=== PATIENT | female | born 1950 | race African-American/Black ===

== ENCOUNTER 2018-04-18 08:27 | Inpatient (IN) ==
[2018-04-18] MEDS ORDERED: ACETAMINOPHEN 500 MG TABLET PO STA (09:19)
[2018-04-18 09:51] LABS: Basophils # 0.1 10*3/uL (0.0-0.2); Basophils % 0.5 % (0.0-0.8); Hematocrit 44.3 VOL% (35.7-47.0); Hemoglobin 14.2 GM/DL (12.0-16.0); Immature Granulocytes % 0.4 %; Immature Granulocytes Absolute 0.05 #; Lymphocytes # 1.4 10*3/uL (1.4-4.0); Lymphocytes % 11.1 % (21.3-54.2); Mean Corpuscular HGB Conc 32.1 GM/DL (32-36); Mean Corpuscular Hemoglobin 26 PG (27-34); Mean Corpuscular Volume 80.3 FL (87-102); Monocytes # 1.4 10*3/uL (0.11-0.8); Monocytes % 11.7 % (1.7-12.7); Neutrophils # 9.4 10*3/uL (1.4-7.4); Neutrophils % 76.3 % (38.7-73.9); Platelet Count 184 T/CUMM (130-400); Red Blood Count 5.52 MC/CUMM (3.8-5.5); Red Cell Distribution Width 14.6 % (9.3-17.3); White Blood Count 12.3 T/CUMM (4-12)
[2018-04-18 10:09] LABS: Albumin 3.7 G/DL (3.4-5.0); Bilirubin,Total 0.7 MG/DL (0.2-1.0); Calcium 9.5 MG/DL (8.5-10.1); Osmolality,Calculated 270.5 MOS/KG (273-304); Potassium 3.8 MMOL/L (3.5-5.1); Total Protein 8.2 G/DL (6.4-8.3)
[2018-04-18] MEDS ORDERED: LEVOFLOXACIN INJ 500 MG in PREMIX 1 EACH IV STA (10:48)
[2018-04-18 10:50] LABS: Apearance,Urine CLEAR (Clear); Bilirubin,Urine Negative (Negative); Blood, Urine Negative (Negative); Glucose,Urine (UA) Negative (Negative); Hyaline Casts,Urine 3 /LPF (0-3); Ketones,Urine 5 mg/dL (Negative); Mucus,Urine Occasional /LPF (Occasional); Nitrite,Urine Negative (Negative); Protein,Urine 30 MG/DL; RBC,Urine 5 /HPF (0-4); Squamous Epithelial Cell,Urine Occasional /HPF (0-10); Urine Color Yellow (Yellow); Urine Specific Gravity 1.017 (1.001-1.035); Urine Urobilinogen < 2.0 EU/DL (0.2-1.0); WBC,Urine 1 /HPF (0-6)
[2018-04-18] MEDS ORDERED: GLUCAGON 1 MG VIAL IM PRN (13:33)
[2018-04-18] MEDS ORDERED: DEXTROSE 50% 25 GM/50 ML VIAL IV PRN (13:33)
[2018-04-18] MEDS ORDERED: ACETAMINOPHEN 325 MG TABLET PO PRN (13:33)
[2018-04-18] MEDS ORDERED: ONDANSETRON 4 MG/2 ML VIAL IV PRN (13:33)
[2018-04-18] MEDS: SODIUM CHLORIDE 0.9% 1,000 ML IV SCH (14:17)
[2018-04-18] MEDS: INSULIN LISPRO 100 UNIT/ML SUBCUT SCH ×3 (14:34→22:05)
[2018-04-18] MEDS ORDERED: KETOROLAC 15 MG/1 ML VIAL IV ONE (17:19)
[2018-04-18] MEDS: methylPREDNISolone SOD SUC 40 MG/1 ML VIAL IV SCH (17:49)
[2018-04-18] MEDS: cefTRIAXone 1,000 MG in SYRINGE 1 EACH IV SCH (17:51)
[2018-04-18] MEDS ORDERED: FUROSEMIDE 20 MG/2 ML VIAL IV ONE (19:12)
[2018-04-18] MEDS: DOCUSATE SODIUM 100 MG CAPSULE PO SCH (21:24)
[2018-04-18] MEDS: AZITHROMYCIN INJ 500 MG in SODIUM CHLORIDE 0.9% 250 ML IV SCH (21:24)
[2018-04-19] MEDS: ALBUTEROL/IPRATROPIUM 3 ML NEB RESP TX SCH ×4 (01:12→19:37)
[2018-04-19] MEDS: SODIUM CHLORIDE 0.9% 1,000 ML IV SCH ×2 (02:28→10:55)
[2018-04-19] MEDS: KETOROLAC 15 MG/1 ML VIAL IV SCH ×3 (02:28→17:28)
[2018-04-19 04:19] LABS: Basophils % 0.1 % (0.0-0.8); Hematocrit 39.4 VOL% (35.7-47.0); Hemoglobin 12.9 GM/DL (12.0-16.0); Immature Granulocytes % 0.6 %; Immature Granulocytes Absolute 0.08 #; Lymphocytes # 0.9 10*3/uL (1.4-4.0); Lymphocytes % 6.4 % (21.3-54.2); Mean Corpuscular HGB Conc 32.7 GM/DL (32-36); Mean Corpuscular Hemoglobin 26 PG (27-34); Mean Corpuscular Volume 79.1 FL (87-102); Mean Platelet Volume 12.3 FL (9.6-12.0); Monocytes # 1.4 10*3/uL (0.11-0.8); Monocytes % 10.5 % (1.7-12.7); Neutrophils # 11.3 10*3/uL (1.4-7.4); Neutrophils % 82.4 % (38.7-73.9); Platelet Count 175 T/CUMM (130-400); Red Blood Count 4.98 MC/CUMM (3.8-5.5); Red Cell Distribution Width 14.9 % (9.3-17.3); White Blood Count 13.7 T/CUMM (4-12)
[2018-04-19 04:46] LABS: Band Neutrophils 1 % (0-10); Hypochromasia 1+; Lymphocytes 6 % (20-55); Platelet Estimate Adequate; Segmented Neutrophils 80 % (50-85); Total Cells Counted 100
[2018-04-19 05:00] LABS: Albumin 2.8 G/DL (3.4-5.0); Bilirubin,Total 0.5 MG/DL (0.2-1.0); Calcium 8.6 MG/DL (8.5-10.1); Osmolality,Calculated 277.7 MOS/KG (273-304); Potassium 3.7 MMOL/L (3.5-5.1); Total Protein 6.8 G/DL (6.4-8.3)
[2018-04-19] MEDS: methylPREDNISolone SOD SUC 40 MG/1 ML VIAL IV SCH ×2 (05:45→19:07)
[2018-04-19] MEDS: BUDESONIDE 0.25 MG/2 ML NEB RESP TX SCH ×2 (07:27→19:37)
[2018-04-19] MEDS: INSULIN LISPRO 100 UNIT/ML SUBCUT SCH ×4 (08:05→21:39)
[2018-04-19] MEDS: DOCUSATE SODIUM 100 MG CAPSULE PO SCH ×2 (08:54→21:38)
[2018-04-19] MEDS: PANTOPRAZOLE 40 MG TABLET PO SCH (08:54)
[2018-04-19] MEDS: FUROSEMIDE 20 MG/2 ML VIAL IV SCH (08:54)
[2018-04-19] MEDS: cefTRIAXone 1,000 MG in SYRINGE 1 EACH IV SCH (20:50)
[2018-04-19] MEDS: AZITHROMYCIN INJ 500 MG in SODIUM CHLORIDE 0.9% 250 ML IV SCH (21:39)
[2018-04-20] MEDS: ALBUTEROL/IPRATROPIUM 3 ML NEB RESP TX SCH ×4 (00:51→19:25)
[2018-04-20] MEDS: SODIUM CHLORIDE 0.9% 1,000 ML IV SCH ×3 (01:58→22:17)
[2018-04-20] MEDS: KETOROLAC 15 MG/1 ML VIAL IV SCH ×3 (01:59→17:20)
[2018-04-20 05:40] LABS: Basophils % 0.2 % (0.0-0.8); Hematocrit 38.2 VOL% (35.7-47.0); Hemoglobin 12.1 GM/DL (12.0-16.0); Immature Granulocytes % 1.3 %; Immature Granulocytes Absolute 0.16 #; Lymphocytes # 1.3 10*3/uL (1.4-4.0); Lymphocytes % 10.6 % (21.3-54.2); Mean Corpuscular HGB Conc 31.7 GM/DL (32-36); Mean Corpuscular Hemoglobin 26 PG (27-34); Mean Corpuscular Volume 81.3 FL (87-102); Mean Platelet Volume 12.3 FL (9.6-12.0); Monocytes # 1.3 10*3/uL (0.11-0.8); Monocytes % 10.6 % (1.7-12.7); Neutrophils # 9.4 10*3/uL (1.4-7.4); Neutrophils % 77.3 % (38.7-73.9); Platelet Count 185 T/CUMM (130-400); Red Cell Distribution Width 14.8 % (9.3-17.3); White Blood Count 12.1 T/CUMM (4-12)
[2018-04-20 06:01] LABS: Calcium 8.1 MG/DL (8.5-10.1); Osmolality,Calculated 284.1 MOS/KG (273-304); Potassium 3.7 MMOL/L (3.5-5.1)
[2018-04-20] MEDS: BUDESONIDE 0.25 MG/2 ML NEB RESP TX SCH ×2 (07:04→19:25)
[2018-04-20] MEDS: methylPREDNISolone SOD SUC 40 MG/1 ML VIAL IV SCH ×3 (07:16→22:00)
[2018-04-20] MEDS: LEVOTHYROXINE 88 MCG TABLET PO SCH (07:17)
[2018-04-20] MEDS: LEVOTHYROXINE 100 MCG TABLET PO SCH (07:17)
[2018-04-20] MEDS: PANTOPRAZOLE 40 MG TABLET PO SCH (09:16)
[2018-04-20] MEDS: DOCUSATE SODIUM 100 MG CAPSULE PO SCH ×2 (09:16→22:01)
[2018-04-20] MEDS: INSULIN LISPRO 100 UNIT/ML SUBCUT SCH ×4 (10:06→22:14)
[2018-04-20] MEDS: FUROSEMIDE 20 MG/2 ML VIAL IV SCH (11:29)
[2018-04-20] MEDS: cefTRIAXone 1,000 MG in SYRINGE 1 EACH IV SCH (17:18)
[2018-04-20] MEDS: AZITHROMYCIN INJ 500 MG in SODIUM CHLORIDE 0.9% 250 ML IV SCH (22:15)
[2018-04-20] MEDS ORDERED: FEXOFENADINE 180 MG TABLET PO PRN (22:44)
[2018-04-20] MEDS ORDERED: CILOSTAZOL 50 MG TABLET PO SCH (23:00)
[2018-04-20] MEDS ORDERED: AMITRIPTYLINE 100 MG TABLET PO SCH (23:00)
[2018-04-21] MEDS ORDERED: AZITHROMYCIN INJ 250 MG in SODIUM CHLORIDE 0.9% 250 ML IV SCH
[2018-04-21] MEDS: AMITRIPTYLINE 100 MG TABLET PO SCH ×2 (00:02→22:18)
[2018-04-21] MEDS: ALBUTEROL/IPRATROPIUM 3 ML NEB RESP TX SCH ×4 (00:50→19:46)
[2018-04-21] MEDS: methylPREDNISolone SOD SUC 40 MG/1 ML VIAL IV SCH ×4 (01:27→18:03)
[2018-04-21] MEDS: KETOROLAC 15 MG/1 ML VIAL IV SCH ×3 (01:30→18:00)
[2018-04-21] MEDS: SODIUM CHLORIDE 0.9% 1,000 ML IV SCH ×2 (01:33→14:53)
[2018-04-21 06:34] LABS: Basophils % 0.3 % (0.0-0.8); Eosinophils % 0.1 % (0.00-10.9); Hemoglobin 13.2 GM/DL (12.0-16.0); Immature Granulocytes % 3.2 %; Immature Granulocytes Absolute 0.23 #; Lymphocytes # 1.2 10*3/uL (1.4-4.0); Lymphocytes % 16.3 % (21.3-54.2); Mean Corpuscular HGB Conc 31.4 GM/DL (32-36); Mean Corpuscular Hemoglobin 26 PG (27-34); Mean Corpuscular Volume 81.1 FL (87-102); Mean Platelet Volume 12.3 FL (9.6-12.0); Monocytes # 0.6 10*3/uL (0.11-0.8); Monocytes % 8.7 % (1.7-12.7); NRBC # 0.02 10*3/uL; Neutrophils # 5.2 10*3/uL (1.4-7.4); Neutrophils % 71.4 % (38.7-73.9); Platelet Count 228 T/CUMM (130-400); Red Blood Count 5.18 MC/CUMM (3.8-5.5); White Blood Count 7.3 T/CUMM (4-12)
[2018-04-21 07:00] LABS: Osmolality,Calculated 289.8 MOS/KG (273-304); Potassium 3.5 MMOL/L (3.5-5.1)
[2018-04-21] MEDS: LEVOTHYROXINE 100 MCG TABLET PO SCH (07:13)
[2018-04-21] MEDS: LEVOTHYROXINE 88 MCG TABLET PO SCH (07:13)
[2018-04-21] MEDS: BUDESONIDE 0.25 MG/2 ML NEB RESP TX SCH ×2 (07:38→19:46)
[2018-04-21] MEDS: INSULIN LISPRO 100 UNIT/ML SUBCUT SCH ×4 (09:15→22:17)
[2018-04-21] MEDS: ASPIRIN EC 81 MG TABLET PO SCH (09:16)
[2018-04-21] MEDS: PANTOPRAZOLE 40 MG TABLET PO SCH (09:16)
[2018-04-21] MEDS: ATENOLOL 50 MG TABLET PO SCH (09:16)
[2018-04-21] MEDS: FUROSEMIDE 20 MG/2 ML VIAL IV SCH (09:17)
[2018-04-21] MEDS: DOCUSATE SODIUM 100 MG CAPSULE PO SCH ×2 (09:57→22:19)
[2018-04-21] MEDS: cefTRIAXone 1,000 MG in SYRINGE 1 EACH IV SCH (18:02)
[2018-04-21] MEDS: AZITHROMYCIN INJ 250 MG in SODIUM CHLORIDE 0.9% 250 ML IV SCH (22:20)
[2018-04-22] MEDS: ALBUTEROL/IPRATROPIUM 3 ML NEB RESP TX SCH ×4 (00:21→19:23)
[2018-04-22] MEDS: methylPREDNISolone SOD SUC 40 MG/1 ML VIAL IV SCH ×4 (01:40→18:19)
[2018-04-22] MEDS: KETOROLAC 15 MG/1 ML VIAL IV SCH ×3 (01:42→18:21)
[2018-04-22 05:52] LABS: Basophils % 0.3 % (0.0-0.8); Eosinophils % 0.1 % (0.00-10.9); Hematocrit 41.2 VOL% (35.7-47.0); Hemoglobin 13.2 GM/DL (12.0-16.0); Immature Granulocytes % 3.2 %; Immature Granulocytes Absolute 0.33 #; Lymphocytes # 1.6 10*3/uL (1.4-4.0); Lymphocytes % 15.4 % (21.3-54.2); Mean Corpuscular Hemoglobin 26 PG (27-34); Mean Corpuscular Volume 79.8 FL (87-102); Mean Platelet Volume 12.5 FL (9.6-12.0); Monocytes # 0.8 10*3/uL (0.11-0.8); Monocytes % 7.3 % (1.7-12.7); NRBC # 0.02 10*3/uL; Neutrophils # 7.6 10*3/uL (1.4-7.4); Neutrophils % 73.7 % (38.7-73.9); Platelet Count 233 T/CUMM (130-400); Red Blood Count 5.16 MC/CUMM (3.8-5.5); Red Cell Distribution Width 15.3 % (9.3-17.3); White Blood Count 10.3 T/CUMM (4-12)
[2018-04-22 06:20] LABS: Calcium 9.4 MG/DL (8.5-10.1); Osmolality,Calculated 287.8 MOS/KG (273-304)
[2018-04-22] MEDS: LEVOTHYROXINE 100 MCG TABLET PO SCH (06:41)
[2018-04-22] MEDS: LEVOTHYROXINE 88 MCG TABLET PO SCH (06:41)
[2018-04-22] MEDS: BUDESONIDE 0.25 MG/2 ML NEB RESP TX SCH ×2 (07:33→19:23)
[2018-04-22] MEDS: INSULIN LISPRO 100 UNIT/ML SUBCUT SCH ×4 (07:49→21:36)
[2018-04-22] MEDS: ASPIRIN EC 81 MG TABLET PO SCH (10:02)
[2018-04-22] MEDS: FUROSEMIDE 20 MG/2 ML VIAL IV SCH (10:03)
[2018-04-22] MEDS: PANTOPRAZOLE 40 MG TABLET PO SCH (10:03)
[2018-04-22] MEDS: DOCUSATE SODIUM 100 MG CAPSULE PO SCH ×2 (10:06→21:36)
[2018-04-22] MEDS: ATENOLOL 50 MG TABLET PO SCH ×2 (10:16→11:21)
[2018-04-22] MEDS: cefTRIAXone 1,000 MG in SYRINGE 1 EACH IV SCH (18:23)
[2018-04-22] MEDS: SODIUM CHLORIDE 0.9% 1,000 ML IV SCH (20:51)
[2018-04-22] MEDS: AMITRIPTYLINE 100 MG TABLET PO SCH (21:36)
[2018-04-22] MEDS: AZITHROMYCIN INJ 250 MG in SODIUM CHLORIDE 0.9% 250 ML IV SCH (21:36)
[2018-04-23] MEDS: ALBUTEROL/IPRATROPIUM 3 ML NEB RESP TX SCH ×3 (00:47→14:32)
[2018-04-23] MEDS: KETOROLAC 15 MG/1 ML VIAL IV SCH ×3 (01:53→17:50)
[2018-04-23] MEDS: methylPREDNISolone SOD SUC 40 MG/1 ML VIAL IV SCH ×3 (01:54→14:15)
[2018-04-23 05:54] LABS: Basophils % 0.3 % (0.0-0.8); Eosinophils % 0.2 % (0.00-10.9); Hematocrit 42.7 VOL% (35.7-47.0); Hemoglobin 13.3 GM/DL (12.0-16.0); Immature Granulocytes % 4.8 %; Immature Granulocytes Absolute 0.55 #; Lymphocytes # 1.7 10*3/uL (1.4-4.0); Mean Corpuscular HGB Conc 31.1 GM/DL (32-36); Mean Corpuscular Hemoglobin 25 PG (27-34); Mean Corpuscular Volume 81.2 FL (87-102); Mean Platelet Volume 11.3 FL (9.6-12.0); Monocytes # 0.6 10*3/uL (0.11-0.8); Monocytes % 5.2 % (1.7-12.7); NRBC # 0.02 10*3/uL; Neutrophils # 8.5 10*3/uL (1.4-7.4); Neutrophils % 74.5 % (38.7-73.9); Platelet Count 307 T/CUMM (130-400); Red Blood Count 5.26 MC/CUMM (3.8-5.5); Red Cell Distribution Width 15.2 % (9.3-17.3); White Blood Count 11.5 T/CUMM (4-12)
[2018-04-23 06:19] LABS: Lymphocytes 18 % (20-55); Platelet Estimate Adequate; Segmented Neutrophils 79 % (50-85); Total Cells Counted 100
[2018-04-23 06:20] LABS: Hypochromasia 1+
[2018-04-23 06:24] LABS: Osmolality,Calculated 288.1 MOS/KG (273-304)
[2018-04-23] MEDS: LEVOTHYROXINE 88 MCG TABLET PO SCH (06:54)
[2018-04-23] MEDS: LEVOTHYROXINE 100 MCG TABLET PO SCH (06:54)
[2018-04-23] MEDS: BUDESONIDE 0.25 MG/2 ML NEB RESP TX SCH (07:51)
[2018-04-23] MEDS: FUROSEMIDE 20 MG/2 ML VIAL IV SCH (09:45)
[2018-04-23] MEDS: ATENOLOL 50 MG TABLET PO SCH (09:46)
[2018-04-23] MEDS: ASPIRIN EC 81 MG TABLET PO SCH (09:46)
[2018-04-23] MEDS: DOCUSATE SODIUM 100 MG CAPSULE PO SCH (09:46)
[2018-04-23] MEDS: PANTOPRAZOLE 40 MG TABLET PO SCH (09:46)
[2018-04-23] MEDS: INSULIN LISPRO 100 UNIT/ML SUBCUT SCH ×3 (09:46→16:27)
[2018-04-23 16:28] VITALS: BP 147/80
[2018-04-23] MEDS: cefTRIAXone 1,000 MG in SYRINGE 1 EACH IV SCH (17:50)
== END 2018-04-23 18:37 | disposition home or self-care (01) | DRG 194 ==
LOC: N.ED 08:27 → N.EDINP 10:50 → N.2W 13:25 → N.5E 14:51
PROVIDERS: ADMIT Internal Medicine; ATTEND Internal Medicine

== ENCOUNTER 2019-09-17 05:42 | Inpatient (IN) ==
[~2019-09-17 05:42] MED LIST: ACETAMINOPHEN 500 MG TABLET PO ONE; GABAPENTIN 400 MG CAPSULE PO ONE; LACTATED RINGERS 1,000 ML IV SCH
[2019-09-17] MEDS ORDERED: VANCOMYCIN 1,000 MG VIAL ONE (05:54)
[2019-09-17] MEDS ORDERED: ceFAZolin 1,000 MG VIAL ONE (05:54)
[2019-09-17] MEDS ORDERED: ACETAMINOPHEN 500 MG TABLET ONE (05:55)
[2019-09-17] MEDS ORDERED: GABAPENTIN 400 MG CAPSULE ONE (05:55)
[2019-09-17] MEDS ORDERED: VANCOMYCIN INJ 1,000 MG in SODIUM CHLORIDE 0.9% 250 ML IV ONE (06:00)
[2019-09-17] MEDS ORDERED: ACETAMINOPHEN 1,000 MG/100 ML VIAL IV ONE (06:36)
[2019-09-17] MEDS ORDERED: FAMOTIDINE 20 MG/2 ML VIAL IV ONE (06:36)
[2019-09-17] MEDS ORDERED: ceFAZolin 1,000 MG in SYRINGE 1 EACH IV ONE (07:00)
[2019-09-17] MEDS ORDERED: TEMAZEPAM 7.5 MG CAPSULE PO PRN (07:14)
[2019-09-17] MEDS ORDERED: diphenhydrAMINE CAP 25 MG CAPSULE PO PRN (07:14)
[2019-09-17] MEDS ORDERED: MORPHINE 4 MG/1 ML VIAL IV PRN (07:14)
[2019-09-17] MEDS ORDERED: ONDANSETRON 4 MG/2 ML VIAL IV PRN ×2 (07:14→09:12)
[2019-09-17] MEDS ORDERED: BISACODYL 10 MG SUPP RECTAL PRN (07:14)
[2019-09-17] MEDS ORDERED: LACTULOSE 20 GM/30 ML UDCUP PO PRN (07:14)
[2019-09-17] MEDS ORDERED: PROMETHAZINE 25 MG/1 ML VIAL IM PRN (07:14)
[2019-09-17] MEDS ORDERED: FLUTICASONE 50 MCG NASAL SPRAY 16 GM BOTTLE BOTH NARES PRN (07:17)
[2019-09-17] MEDS ORDERED: LACTATED RINGERS 1,000 ML IV SCH (07:30)
[2019-09-17] MEDS ORDERED: propofoL 200 MG/20 ML VIAL IV ONE (08:48)
[2019-09-17] MEDS ORDERED: MIDAZOLAM 2 MG/2 ML VIAL ONE (08:49)
[2019-09-17] MEDS ORDERED: SODIUM CHLORIDE 0.9% 500 ML IV ONE (08:49)
[2019-09-17] MEDS ORDERED: fentaNYL 100 MCG/2 ML VIAL ONE (08:49)
[2019-09-17] MEDS ORDERED: TRANEXAMIC ACID 1,000 MG/10 ML VIAL ONE (08:49)
[2019-09-17] MEDS ORDERED: PHENYLEPHRINE 1 MG/10 ML SYRINGE IV ONE (08:49)
[2019-09-17] MEDS ORDERED: ROPIVACAINE 0.5% 30 ML VIAL ONE (08:50)
[2019-09-17] MEDS ORDERED: GLYCOPYRROLATE 0.4 MG/2 ML VIAL ONE (08:50)
[2019-09-17] MEDS ORDERED: ONDANSETRON 4 MG/2 ML VIAL ONE (08:50)
[2019-09-17] MEDS ORDERED: EPINEPHrine 1 MG/ML VIAL ONE (08:50)
[2019-09-17] MEDS ORDERED: BUPIVACAINE SPINAL 0.75% 2 ML AMP SPINAL ONE (08:50)
[2019-09-17] MEDS ORDERED: DEXAMETHASONE 4 MG/1 ML VIAL ONE (08:50)
[2019-09-17] MEDS ORDERED: KETAMINE 500 MG/10 ML VIAL ONE (08:51)
[2019-09-17] MEDS ORDERED: NON-FORMULARY MEDICATION (Biotin 10,000 MCG) PO SCH (09:00)
[2019-09-17] MEDS: HYDROmorphone 2 MG/1 ML VIAL IV PRN ×2 (09:15→09:25)
[2019-09-17 11:26] LABS: Basophils % 0.6 % (0.0-0.8); Eosinophils # 0.1 10*3/uL (0.0-0.87); Eosinophils % 1.6 % (0.00-10.9); Hematocrit 42.7 VOL% (35.7-47.0); Hemoglobin 13.2 GM/DL (12.0-16.0); Immature Granulocytes % 0.5 %; Immature Granulocytes Absolute 0.03 #; Lymphocytes # 1.9 10*3/uL (1.4-4.0); Mean Corpuscular HGB Conc 30.9 GM/DL (32-36); Mean Corpuscular Volume 82.1 FL (87-102); Mean Platelet Volume 11.1 FL (9.6-12.0); Monocytes % 8.7 % (1.7-12.7); Neutrophils % 58.6 % (38.7-73.9); Platelet Count 212 T/CUMM (130-400); Red Cell Distribution Width 13.8 % (9.3-17.3); White Blood Count 6.2 T/CUMM (4-12)
[2019-09-17 11:56] LABS: Calcium 8.4 MG/DL (8.5-10.1); Osmolality,Calculated 278.7 MOS/KG (273-304)
[2019-09-17] MEDS: amLODIPine 5 MG TABLET PO SCH (12:15)
[2019-09-17] MEDS: carvediloL 6.25 MG TABLET PO SCH ×2 (12:15→21:33)
[2019-09-17] MEDS: CHLORTHALIDONE 25 MG TABLET PO SCH (12:17)
[2019-09-17] MEDS: GLIMEPIRIDE 2 MG TABLET PO SCH (13:26)
[2019-09-17] MEDS: DOCUSATE SODIUM 100 MG CAPSULE PO SCH ×2 (13:26→21:33)
[2019-09-17] MEDS: ASPIRIN EC 81 MG TABLET PO SCH (13:26)
[2019-09-17] MEDS: MULTIVITAMIN (CENTRUM) TABLET PO SCH (13:26)
[2019-09-17] MEDS: FOLIC ACID 1 MG TABLET PO SCH (13:27)
[2019-09-17] MEDS: gemfibroziL 600 MG TABLET PO SCH ×2 (13:27→21:33)
[2019-09-17] MEDS: azaTHIOprine 50 MG TABLET PO SCH ×2 (13:27→21:33)
[2019-09-17] MEDS: FUROSEMIDE 40 MG TABLET PO SCH (13:27)
[2019-09-17] MEDS: GLUCOSAMINE 500 MG TABLET PO SCH (13:27)
[2019-09-17] MEDS: PANTOPRAZOLE 40 MG TABLET PO SCH (13:28)
[2019-09-17] MEDS: cilostazoL 50 MG TABLET PO SCH ×2 (13:28→21:33)
[2019-09-17] MEDS: CHOLECALCIFEROL 5,000 UNIT TABLET PO SCH (13:28)
[2019-09-17] MEDS: MAGNESIUM OXIDE 400 MG TABLET PO SCH ×2 (13:28→21:33)
[2019-09-17] MEDS: NABUMETONE 500 MG TABLET PO SCH ×2 (13:28→21:33)
[2019-09-17] MEDS: SOLIFENACIN 5 MG TABLET PO SCH (13:28)
[2019-09-17] MEDS: CYANOCOBALAMIN 500 MCG TABLET PO SCH (13:28)
[2019-09-17] MEDS: CETIRIZINE 10 MG TABLET PO SCH (13:29)
[2019-09-17] MEDS: ceFAZolin 2,000 MG in PREMIX 1 EACH IV SCH ×2 (13:32→21:45)
[2019-09-17] MEDS: POTASSIUM CHLORIDE 20 MEQ TABLET PO SCH (21:33)
[2019-09-17] MEDS: AMITRIPTYLINE 100 MG TABLET PO SCH (21:33)
[2019-09-17] MEDS: FONDAPARINUX 2.5 MG/0.5 ML SYRINGE SUBCUT SCH (21:37)
[2019-09-18 05:32] LABS: Basophils % 0.3 % (0.0-0.8); Eosinophils # 0.1 10*3/uL (0.0-0.87); Eosinophils % 1.1 % (0.00-10.9); Hematocrit 40.5 VOL% (35.7-47.0); Hemoglobin 12.5 GM/DL (12.0-16.0); Immature Granulocytes % 0.5 %; Immature Granulocytes Absolute 0.04 #; Lymphocytes # 1.6 10*3/uL (1.4-4.0); Mean Corpuscular HGB Conc 30.9 GM/DL (32-36); Mean Corpuscular Volume 80.7 FL (87-102); Mean Platelet Volume 11.5 FL (9.6-12.0); Monocytes % 16.1 % (1.7-12.7); Platelet Count 235 T/CUMM (130-400); Red Blood Count 5.02 MC/CUMM (3.8-5.5); Red Cell Distribution Width 13.5 % (9.3-17.3); White Blood Count 8.8 T/CUMM (4-12)
[2019-09-18] MEDS: LEVOTHYROXINE 125 MCG TABLET PO SCH (05:39)
[2019-09-18 05:46] LABS: Calcium 8.9 MG/DL (8.5-10.1); Osmolality,Calculated 276.7 MOS/KG (273-304)
[2019-09-18 05:55] LABS: Band Neutrophils 2 % (0-10); Eosinophils 1 % (0-10); Hypochromasia 1+; Lymphocytes 19 % (20-55); Microcytosis 1+; Segmented Neutrophils 71 % (50-85); Target Cells Slight; Total Cells Counted 100
[2019-09-18 05:56] LABS: Ovalocytes Slight; Platelet Estimate Normal; Polychromasia Slight
[2019-09-18] MEDS ORDERED: POTASSIUM CHLORIDE 20 MEQ TABLET PO ONE (07:35)
[2019-09-18] MEDS ORDERED: GLUCAGON 1 MG VIAL IM PRN (07:36)
[2019-09-18] MEDS ORDERED: DEXTROSE 50% 25 GM/50 ML VIAL IV PRN (07:36)
[2019-09-18] MEDS: ASPIRIN EC 81 MG TABLET PO SCH (10:00)
[2019-09-18] MEDS: CETIRIZINE 10 MG TABLET PO SCH (10:00)
[2019-09-18] MEDS: CYANOCOBALAMIN 500 MCG TABLET PO SCH (10:00)
[2019-09-18] MEDS: amLODIPine 5 MG TABLET PO SCH (10:01)
[2019-09-18] MEDS: POTASSIUM CHLORIDE 20 MEQ TABLET PO SCH ×2 (10:01→20:16)
[2019-09-18] MEDS: NABUMETONE 500 MG TABLET PO SCH ×2 (10:01→20:17)
[2019-09-18] MEDS: PANTOPRAZOLE 40 MG TABLET PO SCH (10:01)
[2019-09-18] MEDS: FUROSEMIDE 40 MG TABLET PO SCH (10:01)
[2019-09-18] MEDS: SOLIFENACIN 5 MG TABLET PO SCH (10:01)
[2019-09-18] MEDS: azaTHIOprine 50 MG TABLET PO SCH ×2 (10:02→20:15)
[2019-09-18] MEDS: CHOLECALCIFEROL 5,000 UNIT TABLET PO SCH (10:02)
[2019-09-18] MEDS: CHLORTHALIDONE 25 MG TABLET PO SCH (10:02)
[2019-09-18] MEDS: FOLIC ACID 1 MG TABLET PO SCH (10:02)
[2019-09-18] MEDS: gemfibroziL 600 MG TABLET PO SCH ×2 (10:02→20:16)
[2019-09-18] MEDS: DOCUSATE SODIUM 100 MG CAPSULE PO SCH ×2 (10:03→20:14)
[2019-09-18] MEDS: GLIMEPIRIDE 2 MG TABLET PO SCH (10:03)
[2019-09-18] MEDS: GLUCOSAMINE 500 MG TABLET PO SCH (10:03)
[2019-09-18] MEDS: carvediloL 6.25 MG TABLET PO SCH ×2 (10:03→20:14)
[2019-09-18] MEDS: cilostazoL 50 MG TABLET PO SCH ×2 (10:03→20:16)
[2019-09-18] MEDS: MULTIVITAMIN (CENTRUM) TABLET PO SCH (10:03)
[2019-09-18] MEDS: MAGNESIUM OXIDE 400 MG TABLET PO SCH ×2 (10:03→20:16)
[2019-09-18] MEDS: INSULIN REGULAR 100 UNIT/ML SUBCUT SCH ×3 (13:01→20:11)
[2019-09-18] MEDS: FONDAPARINUX 2.5 MG/0.5 ML SYRINGE SUBCUT SCH (20:15)
[2019-09-18] MEDS: AMITRIPTYLINE 100 MG TABLET PO SCH (20:15)
[2019-09-18] MEDS ORDERED: MAGNESIUM SULF RIDER 2 GM in PREMIX 1 EACH IV ONE (20:32)
[2019-09-19] MEDS: LEVOTHYROXINE 125 MCG TABLET PO SCH (05:05)
[2019-09-19 05:21] LABS: Basophils # 0.1 10*3/uL (0.0-0.2); Basophils % 0.7 % (0.0-0.8); Eosinophils # 0.3 10*3/uL (0.0-0.87); Eosinophils % 4.7 % (0.00-10.9); Hematocrit 41.3 VOL% (35.7-47.0); Hemoglobin 12.7 GM/DL (12.0-16.0); Immature Granulocytes % 0.4 %; Immature Granulocytes Absolute 0.03 #; Lymphocytes # 1.8 10*3/uL (1.4-4.0); Lymphocytes % 24.4 % (21.3-54.2); Mean Corpuscular HGB Conc 30.8 GM/DL (32-36); Mean Corpuscular Volume 81.9 FL (87-102); Mean Platelet Volume 11.3 FL (9.6-12.0); Monocytes % 17.8 % (1.7-12.7); Platelet Count 199 T/CUMM (130-400); Red Blood Count 5.04 MC/CUMM (3.8-5.5); Red Cell Distribution Width 13.5 % (9.3-17.3); White Blood Count 7.3 T/CUMM (4-12)
[2019-09-19 05:43] LABS: Eosinophils 8 % (0-10); Hypochromasia 1+; Lymphocytes 25 % (20-55); Microcytosis 1+; Ovalocytes Slight; Platelet Estimate Adequate; Segmented Neutrophils 45 % (50-85); Total Cells Counted 100
[2019-09-19 05:47] LABS: Calcium 8.8 MG/DL (8.5-10.1); Osmolality,Calculated 277.7 MOS/KG (273-304)
[2019-09-19] MEDS: INSULIN REGULAR 100 UNIT/ML SUBCUT SCH ×4 (07:52→20:32)
[2019-09-19] MEDS: DOCUSATE SODIUM 100 MG CAPSULE PO SCH ×2 (08:43→20:27)
[2019-09-19] MEDS: cilostazoL 50 MG TABLET PO SCH ×2 (08:43→20:27)
[2019-09-19] MEDS: CHOLECALCIFEROL 5,000 UNIT TABLET PO SCH (08:43)
[2019-09-19] MEDS: GLIMEPIRIDE 2 MG TABLET PO SCH (08:43)
[2019-09-19] MEDS: MAGNESIUM OXIDE 400 MG TABLET PO SCH ×2 (08:43→20:27)
[2019-09-19] MEDS: gemfibroziL 600 MG TABLET PO SCH ×2 (08:44→20:28)
[2019-09-19] MEDS: MULTIVITAMIN (CENTRUM) TABLET PO SCH (08:44)
[2019-09-19] MEDS: CYANOCOBALAMIN 500 MCG TABLET PO SCH (08:44)
[2019-09-19] MEDS: FOLIC ACID 1 MG TABLET PO SCH (08:44)
[2019-09-19] MEDS: CHLORTHALIDONE 25 MG TABLET PO SCH (08:44)
[2019-09-19] MEDS: GLUCOSAMINE 500 MG TABLET PO SCH (08:44)
[2019-09-19] MEDS: NABUMETONE 500 MG TABLET PO SCH ×2 (08:44→20:29)
[2019-09-19] MEDS: FUROSEMIDE 40 MG TABLET PO SCH (08:44)
[2019-09-19] MEDS: POTASSIUM CHLORIDE 20 MEQ TABLET PO SCH ×3 (08:44→20:36)
[2019-09-19] MEDS: amLODIPine 5 MG TABLET PO SCH (08:44)
[2019-09-19] MEDS: SOLIFENACIN 5 MG TABLET PO SCH (08:45)
[2019-09-19] MEDS: carvediloL 6.25 MG TABLET PO SCH ×2 (08:45→20:30)
[2019-09-19] MEDS: azaTHIOprine 50 MG TABLET PO SCH ×2 (08:45→20:30)
[2019-09-19] MEDS: ASPIRIN EC 81 MG TABLET PO SCH (08:45)
[2019-09-19] MEDS: CETIRIZINE 10 MG TABLET PO SCH (08:45)
[2019-09-19] MEDS: PANTOPRAZOLE 40 MG TABLET PO SCH (08:48)
[2019-09-19] MEDS: MAGNESIUM HYDROXIDE SUSP 30 ML UDCUP PO PRN ×2 (15:03→20:29)
[2019-09-19] MEDS ORDERED: POTASSIUM CHLORIDE 20 MEQ TABLET PO ONE (18:26)
[2019-09-19] MEDS: AMITRIPTYLINE 100 MG TABLET PO SCH (20:27)
[2019-09-19] MEDS: FONDAPARINUX 2.5 MG/0.5 ML SYRINGE SUBCUT SCH (20:32)
[2019-09-19] MEDS ORDERED: POTASSIUM CHLORIDE 20 MEQ TABLET PO PRN (21:50)
[2019-09-20 05:50] LABS: Basophils # 0.1 10*3/uL (0.0-0.2); Basophils % 0.7 % (0.0-0.8); Eosinophils # 0.4 10*3/uL (0.0-0.87); Eosinophils % 5.5 % (0.00-10.9); Hematocrit 36.3 VOL% (35.7-47.0); Hemoglobin 11.2 GM/DL (12.0-16.0); Immature Granulocytes % 0.3 %; Immature Granulocytes Absolute 0.02 #; Lymphocytes # 1.9 10*3/uL (1.4-4.0); Lymphocytes % 28.1 % (21.3-54.2); Mean Corpuscular HGB Conc 30.9 GM/DL (32-36); Mean Corpuscular Volume 81.8 FL (87-102); Mean Platelet Volume 12.3 FL (9.6-12.0); Monocytes % 17.9 % (1.7-12.7); NRBC # 0.02 10*3/uL; Neutrophils % 47.5 % (38.7-73.9); Platelet Count 184 T/CUMM (130-400); Red Blood Count 4.44 MC/CUMM (3.8-5.5); Red Cell Distribution Width 13.5 % (9.3-17.3); White Blood Count 6.9 T/CUMM (4-12)
[2019-09-20] MEDS: LEVOTHYROXINE 125 MCG TABLET PO SCH (06:02)
[2019-09-20 06:16] LABS: Hypochromasia 1+; Platelet Estimate Adequate
[2019-09-20 06:17] LABS: Microcytosis 1+
[2019-09-20 06:18] LABS: Calcium 8.7 MG/DL (8.5-10.1); Osmolality,Calculated 280.5 MOS/KG (273-304)
[2019-09-20] MEDS: NABUMETONE 500 MG TABLET PO SCH (09:10)
[2019-09-20] MEDS: CHOLECALCIFEROL 5,000 UNIT TABLET PO SCH (09:10)
[2019-09-20] MEDS: ASPIRIN EC 81 MG TABLET PO SCH (09:10)
[2019-09-20] MEDS: SOLIFENACIN 5 MG TABLET PO SCH (09:11)
[2019-09-20] MEDS: POTASSIUM CHLORIDE 20 MEQ TABLET PO SCH (09:11)
[2019-09-20] MEDS: amLODIPine 5 MG TABLET PO SCH (09:11)
[2019-09-20] MEDS: cilostazoL 50 MG TABLET PO SCH (09:11)
[2019-09-20] MEDS: MULTIVITAMIN (CENTRUM) TABLET PO SCH (09:11)
[2019-09-20] MEDS: CHLORTHALIDONE 25 MG TABLET PO SCH (09:12)
[2019-09-20] MEDS: carvediloL 6.25 MG TABLET PO SCH (09:12)
[2019-09-20] MEDS: GLIMEPIRIDE 2 MG TABLET PO SCH (09:12)
[2019-09-20] MEDS: FOLIC ACID 1 MG TABLET PO SCH (09:12)
[2019-09-20] MEDS: CYANOCOBALAMIN 500 MCG TABLET PO SCH (09:13)
[2019-09-20] MEDS: azaTHIOprine 50 MG TABLET PO SCH (09:13)
[2019-09-20] MEDS: PANTOPRAZOLE 40 MG TABLET PO SCH (09:13)
[2019-09-20] MEDS: DOCUSATE SODIUM 100 MG CAPSULE PO SCH (09:13)
[2019-09-20] MEDS: gemfibroziL 600 MG TABLET PO SCH (09:14)
[2019-09-20] MEDS: GLUCOSAMINE 500 MG TABLET PO SCH (09:15)
[2019-09-20] MEDS: MAGNESIUM OXIDE 400 MG TABLET PO SCH (09:27)
[2019-09-20] MEDS: FUROSEMIDE 40 MG TABLET PO SCH (09:27)
[2019-09-20] MEDS: INSULIN REGULAR 100 UNIT/ML SUBCUT SCH ×2 (11:41→11:55)
[2019-09-20 11:44] VITALS: BP 131/63
[2019-09-20] MEDS: CETIRIZINE 10 MG TABLET PO SCH (11:56)
== END 2019-09-20 13:23 | disposition swing bed (61) | DRG 470 ==
LOC: N.PREADM 05:42 → N.SDSINP 05:43 → N.3E 09:43
PROVIDERS: ADMIT Orthopaedic Surgery; ATTEND Orthopaedic Surgery

== ENCOUNTER 2021-06-01 05:42 | Inpatient (IN) ==
[2021-05-25 12:21] LABS: Basophils # 0.1 10*3/uL (0.0-0.2); Eosinophils # 0.2 10*3/uL (0.0-0.87); Eosinophils % 4.3 % (0.00-10.9); Hematocrit 45.2 VOL% (35.7-47.0); Hemoglobin 13.9 GM/DL (12.0-16.0); Immature Granulocytes % 0.4 %; Immature Granulocytes Absolute 0.02 #; Lymphocytes # 1.8 10*3/uL (1.4-4.0); Lymphocytes % 37.3 % (21.3-54.2); Mean Corpuscular HGB Conc 30.8 GM/DL (32-36); Mean Corpuscular Volume 85.1 FL (87-102); Platelet Count 198 T/CUMM (130-400); Red Blood Count 5.31 MC/CUMM (3.8-5.5); Red Cell Distribution Width 14.2 % (9.3-17.3); White Blood Count 4.9 T/CUMM (4-12)
[2021-05-25 12:29] LABS: INR 1.1; PT Patient Result 12.3 SECS (10.5-12.0); Partial Thromboplastin Time 27.3 SECS (23.9-33.8)
[2021-05-25 12:36] LABS: Bacteria,Urine Few /HPF (Few); Bilirubin,Urine Negative (Negative); Blood, Urine Negative (Negative); Glucose,Urine (UA) Negative (Negative); Ketones,Urine Negative (Negative); Mucus,Urine Occasional /LPF (Occasional); Nitrite,Urine Negative (Negative); Protein,Urine Negative; RBC,Urine 2 /HPF (0-4); Squamous Epithelial Cell,Urine Few /HPF (0-10); Urine Appearance CLOUDY (Clear); Urine Color Amber (Yellow); Urine Specific Gravity 1.017 (1.001-1.035); Urine Urobilinogen < 2.0 EU/DL (0.2-1.0)
[2021-05-25 12:48] LABS: Albumin 3.6 G/DL (3.4-5.0); Bilirubin,Total 0.7 MG/DL (0.20-1.00); Calcium 8.9 MG/DL (8.5-10.1); Osmolality,Calculated 281.4 MOS/KG (273-304); Potassium 4.4 MMOL/L (3.5-5.1); Total Protein 6.4 G/DL (6.4-8.2)
[2021-06-01] MEDS ORDERED: VANCOMYCIN INJ 1,000 MG in SODIUM CHLORIDE 0.9% 250 ML IV ONE (06:00)
[2021-06-01] MEDS ORDERED: KETAMINE 500 MG/10 ML VIAL ONE (06:11)
[2021-06-01] MEDS ORDERED: LIDOCAINE 2% 5 ML VIAL ONE (06:11)
[2021-06-01] MEDS ORDERED: propofoL 200 MG/20 ML VIAL IV ONE (06:11)
[2021-06-01] MEDS ORDERED: fentaNYL 100 MCG/2 ML VIAL ONE (06:11)
[2021-06-01] MEDS ORDERED: MIDAZOLAM 2 MG/2 ML VIAL ONE (06:11)
[2021-06-01] MEDS ORDERED: ONDANSETRON 4 MG/2 ML VIAL ONE (06:12)
[2021-06-01] MEDS ORDERED: TRANEXAMIC ACID 1,000 MG/10 ML VIAL ONE (06:12)
[2021-06-01] MEDS ORDERED: DEXAMETHASONE 4 MG/1 ML VIAL ONE ×2 (06:12→06:21)
[2021-06-01] MEDS ORDERED: KETOROLAC 30 MG/1 ML VIAL ONE (06:13)
[2021-06-01] MEDS ORDERED: ROPIVACAINE 0.5% 30 ML VIAL ONE (06:21)
[2021-06-01] MEDS ORDERED: LACTATED RINGERS 1,000 ML IV SCH (07:00)
[2021-06-01] MEDS ORDERED: TEMAZEPAM 7.5 MG CAPSULE PO PRN (07:05)
[2021-06-01] MEDS ORDERED: ONDANSETRON 4 MG/2 ML VIAL IV PRN (07:05)
[2021-06-01] MEDS ORDERED: diphenhydrAMINE CAP 25 MG CAPSULE PO PRN (07:05)
[2021-06-01] MEDS ORDERED: MAGNESIUM HYDROXIDE SUSP 30 ML UDCUP PO PRN (07:05)
[2021-06-01] MEDS ORDERED: PROMETHAZINE 25 MG/1 ML VIAL IM PRN (07:05)
[2021-06-01] MEDS ORDERED: MORPHINE 2 MG/1 ML SYRINGE IV PRN ×2 (07:05→08:59)
[2021-06-01] MEDS ORDERED: BISACODYL 10 MG SUPP RECTAL PRN (07:05)
[2021-06-01] MEDS ORDERED: LACTULOSE 20 GM/30 ML UDCUP PO PRN (07:05)
[2021-06-01] MEDS ORDERED: CETIRIZINE 10 MG TABLET PO PRN (07:08)
[2021-06-01] MEDS ORDERED: DEXTROSE 50% 25 GM/50 ML VIAL IV PRN (07:09)
[2021-06-01] MEDS ORDERED: GLUCAGON 1 MG VIAL IM PRN (07:09)
[2021-06-01] MEDS ORDERED: SODIUM CHLORIDE 0.9% 100 ML IV ONE (08:10)
[2021-06-01] MEDS ORDERED: SODIUM CHLORIDE 0.9% 250 ML IV ONE (08:10)
[2021-06-01] MEDS ORDERED: BUPIVACAINE SPINAL 0.75% 2 ML AMP SPINAL ONE (08:11)
[2021-06-01] MEDS ORDERED: PHENYLEPHRINE 1 MG/10 ML SYRINGE IV ONE (08:11)
[2021-06-01] MEDS: INSULIN REGULAR 100 UNIT/ML SUBCUT SCH ×4 (09:57→21:56)
[2021-06-01] MEDS: FUROSEMIDE 40 MG TABLET PO SCH (12:58)
[2021-06-01] MEDS: carvediloL 6.25 MG TABLET PO SCH ×2 (12:58→16:54)
[2021-06-01] MEDS: MELOXICAM 7.5 MG TABLET PO SCH (12:58)
[2021-06-01] MEDS: SOLIFENACIN 5 MG TABLET PO SCH (12:59)
[2021-06-01] MEDS: CHOLECALCIFEROL 5,000 UNIT TABLET PO SCH (12:59)
[2021-06-01] MEDS: PANTOPRAZOLE 40 MG TABLET PO SCH (12:59)
[2021-06-01] MEDS: ceFAZolin 2,000 MG/50 ML DUPLEX IV SCH ×2 (13:31→21:57)
[2021-06-01] MEDS: DOCUSATE SODIUM 100 MG CAPSULE PO SCH (21:55)
[2021-06-01] MEDS: AMITRIPTYLINE 100 MG TABLET PO SCH (21:55)
[2021-06-02 05:02] LABS: Basophils % 0.1 % (0.0-0.8); Hematocrit 39.9 VOL% (35.7-47.0); Hemoglobin 12.3 GM/DL (12.0-16.0); Immature Granulocytes % 0.4 %; Immature Granulocytes Absolute 0.05 #; Lymphocytes # 1.3 10*3/uL (1.4-4.0); Lymphocytes % 10.6 % (21.3-54.2); Mean Corpuscular HGB Conc 30.8 GM/DL (32-36); Mean Corpuscular Volume 84.5 FL (87-102); Neutrophils % 73.9 % (38.7-73.9); Platelet Count 179 T/CUMM (130-400); Red Blood Count 4.72 MC/CUMM (3.8-5.5); Red Cell Distribution Width 13.7 % (9.3-17.3); White Blood Count 12.5 T/CUMM (4-12)
[2021-06-02 05:27] LABS: Calcium 8.9 MG/DL (8.5-10.1); Osmolality,Calculated 282.4 MOS/KG (273-304); Potassium 4.3 MMOL/L (3.5-5.1)
[2021-06-02] MEDS: FONDAPARINUX 2.5 MG/0.5 ML SYRINGE SUBCUT SCH (05:55)
[2021-06-02] MEDS: LEVOTHYROXINE 125 MCG TABLET PO SCH (05:55)
[2021-06-02] MEDS: CYANOCOBALAMIN 500 MCG TABLET PO SCH (08:30)
[2021-06-02] MEDS: FOLIC ACID 1 MG TABLET PO SCH (08:30)
[2021-06-02] MEDS: DOCUSATE SODIUM 100 MG CAPSULE PO SCH ×2 (08:30→20:58)
[2021-06-02] MEDS: FUROSEMIDE 40 MG TABLET PO SCH (08:31)
[2021-06-02] MEDS: GLUCOSAMINE 500 MG TABLET PO SCH (08:31)
[2021-06-02] MEDS: PANTOPRAZOLE 40 MG TABLET PO SCH (08:31)
[2021-06-02] MEDS: MELOXICAM 7.5 MG TABLET PO SCH (08:31)
[2021-06-02] MEDS: SOLIFENACIN 5 MG TABLET PO SCH (08:31)
[2021-06-02] MEDS: GLIMEPIRIDE 2 MG TABLET PO SCH (08:32)
[2021-06-02] MEDS: CHOLECALCIFEROL 5,000 UNIT TABLET PO SCH (08:32)
[2021-06-02] MEDS: ASPIRIN EC 81 MG TABLET PO SCH (08:32)
[2021-06-02] MEDS: carvediloL 6.25 MG TABLET PO SCH ×2 (08:32→18:14)
[2021-06-02] MEDS: MULTIVITAMIN (CENTRUM) TABLET PO SCH (08:32)
[2021-06-02] MEDS: INSULIN REGULAR 100 UNIT/ML SUBCUT SCH ×4 (09:39→20:59)
[2021-06-02] MEDS: AMITRIPTYLINE 100 MG TABLET PO SCH (20:59)
[2021-06-03] MEDS: LEVOTHYROXINE 125 MCG TABLET PO SCH (05:50)
[2021-06-03] MEDS: FONDAPARINUX 2.5 MG/0.5 ML SYRINGE SUBCUT SCH (05:50)
[2021-06-03 07:58] VITALS: BP 121/64
[2021-06-03 08:20] LABS: Bilirubin,Total 0.4 MG/DL (0.20-1.00); Calcium 8.6 MG/DL (8.5-10.1); Potassium 3.7 MMOL/L (3.5-5.1); Total Protein 6.2 G/DL (6.4-8.2)
[2021-06-03 08:31] LABS: Basophils % 0.4 % (0.0-0.8); Eosinophils # 0.2 10*3/uL (0.0-0.87); Eosinophils % 2.1 % (0.00-10.9); Hematocrit 38.5 VOL% (35.7-47.0); Immature Granulocytes % 0.7 %; Immature Granulocytes Absolute 0.06 #; Lymphocytes # 2.6 10*3/uL (1.4-4.0); Lymphocytes % 29.2 % (21.3-54.2); Mean Corpuscular HGB Conc 31.2 GM/DL (32-36); Mean Corpuscular Volume 84.6 FL (87-102); Mean Platelet Volume 12.1 FL (9.6-12.0); Monocytes % 16.5 % (1.7-12.7); Neutrophils % 51.1 % (38.7-73.9); Platelet Count 163 T/CUMM (130-400); Red Blood Count 4.55 MC/CUMM (3.8-5.5); White Blood Count 8.9 T/CUMM (4-12)
[2021-06-03 08:54] LABS: Eosinophils 1 % (0-10); Lymphocytes 39 % (20-55); Nucleated Red Blood Cells 1 (0-5); Platelet Estimate Adequate; Segmented Neutrophils 48 % (50-85); Total Cells Counted 100
[2021-06-03 08:55] LABS: Hypochromasia 1+; Microcytosis 1+
[2021-06-03] MEDS: CYANOCOBALAMIN 500 MCG TABLET PO SCH (09:11)
[2021-06-03] MEDS: DOCUSATE SODIUM 100 MG CAPSULE PO SCH (09:11)
[2021-06-03] MEDS: carvediloL 6.25 MG TABLET PO SCH (09:12)
[2021-06-03] MEDS: FOLIC ACID 1 MG TABLET PO SCH (09:12)
[2021-06-03] MEDS: GLIMEPIRIDE 2 MG TABLET PO SCH (09:12)
[2021-06-03] MEDS: GLUCOSAMINE 500 MG TABLET PO SCH (09:12)
[2021-06-03] MEDS: SOLIFENACIN 5 MG TABLET PO SCH (09:12)
[2021-06-03] MEDS: MULTIVITAMIN (CENTRUM) TABLET PO SCH (09:12)
[2021-06-03] MEDS: PANTOPRAZOLE 40 MG TABLET PO SCH (09:12)
[2021-06-03] MEDS: ASPIRIN EC 81 MG TABLET PO SCH (09:12)
[2021-06-03] MEDS: CHOLECALCIFEROL 5,000 UNIT TABLET PO SCH (09:12)
[2021-06-03] MEDS: MELOXICAM 7.5 MG TABLET PO SCH (09:13)
[2021-06-03] MEDS: FUROSEMIDE 40 MG TABLET PO SCH (09:13)
[2021-06-03] MEDS: INSULIN REGULAR 100 UNIT/ML SUBCUT SCH (10:34)
[2021-06-06] MEDS ORDERED: METHOTREXATE 2.5 MG TABLET PO SCH (09:00)
== END 2021-06-03 10:49 | disposition swing bed (61) | DRG 470 ==
LOC: N.SDSINP 05:42 → N.OR 05:42 → N.SDSINP 06:18 → N.3E 08:50
PROVIDERS: ADMIT Orthopaedic Surgery; ATTEND Orthopaedic Surgery